=== PATIENT | female | born 1995 | race Caucasian/White ===

== ENCOUNTER 2018-10-25 08:01 | Emergency (ER) | payer SELFPAY ==
[2018-10-25 08:14] VITALS: BMI 28.3
[2018-10-25 08:15] VITALS: BP 130/83; PULSE 109; RESP 18; TEMP 99.1; O2SAT 99
[2018-10-25] MEDS ORDERED: Sodium Chloride 0.9% 1,000 ML IV ONE (08:31)
[2018-10-25] MEDS ORDERED: Sodium Chloride 0.9% 1,000 ML ONE (08:39)
[2018-10-25 09:08] LABS: BASO % 0.4 % (0.0-2.0); EOS % 0.3 % (0.0-4.0); HEMOGLOBIN 15.5 g/dL (11.0-16.0); LYMPH # 1.9 K/uL (1.0-4.3); LYMPH % 19.6 % (20.0-40.0); MEAN CELL VOLUME 84.1 fL (81.0-99.0); MEAN CORPUSCULAR HGB CONC 34.5 g/dL (33.0-37.0); MEAN PLATELET VOLUME 8.6 fL (7.2-11.7); MONO # 0.9 K/uL (0.0-0.8); MONO % 9.8 % (0.0-10.0); NEUT # 6.6 K/uL (1.8-7.0); NEUT % 69.9 % (50.0-75.0); RBC 5.34 Mil/uL (3.80-5.20); RED CELL DISTRIBUTION WIDTH 13.4 % (11.5-14.5); WHITE BLOOD COUNT 9.5 K/uL (4.8-10.8)
[2018-10-25 09:23] LABS: HCG,QUALITATIVE URINE NEGATIVE (NEGATIVE)
[2018-10-25 09:29] LABS: SQUAMOUS EPITHIAL 16 /hpf (0-5); URINE BACTERIA RARE (<OCC); URINE BILIRUBIN NEGATIVE (NEGATIVE); URINE BLOOD NEGATIVE (NEGATIVE); URINE CLARITY Hazy (Clear); URINE COLOR Yellow (YELLOW); URINE GLUCOSE (UA) NORMAL (Normal); URINE LEUKOCYTE ESTERASE TRACE Leu/uL (Negative); URINE PROTEIN NEGATIVE (NEGATIVE); URINE UROBILINOGEN NORMAL mg/dL (0.2-1.0)
[2018-10-25 09:31] LABS: ALB/GLOB RATIO 1.4 (1.0-2.1); ALBUMIN 4.8 g/dL (3.5-5.0); ALT/SGPT 30 U/L (9-52); AST/SGOT 29 U/L (14-36); BLOOD UREA NITROGEN 13 mg/dL (7-17); CALCIUM 9.9 mg/dl (8.6-10.4); GFR NON-AFRICAN AMERICAN > 60; LIPASE 34 U/L (23-300)
--- NOTE | 2018-10-25 10:24 | C.PDOC ---
History Of Present Illness 22 y/o female presents to the ER complaining of nausea, vomiting, diarrhea which has been present for the past 3 days. Patient states that her last vomiting episode was last night. Patient reports that she had diarrhea in the morning today. She notes that she has body aches. Denies having fever,chills, CP,SOB, and abdominal pain. Time Seen by Provider: 10/25/18 08:38 Chief Complaint (Nursing): GI Problem History Per: Patient History/Exam Limitations: no limitations Onset/Duration Of Symptoms: Days Current Symptoms Are (Timing): Still Present Severity: Moderate Past Medical History Reviewed: Historical Data, Nursing Documentation, Vital Signs Vital Signs: Last Vital Signs Temp 99.1 F 10/25/18 08:14 Pulse 109 H 10/25/18 08:14 Resp 18 10/25/18 08:14 BP 130/83 10/25/18 08:14 Pulse Ox 99 10/25/18 08:14 - Medical History PMH: No Chronic Diseases Other Surgeries: Hx of surgeries Family History: States: No Known Family Hx - Social History Hx Alcohol Use: Yes Hx Substance Use: No - Immunization History Hx Tetanus Toxoid Vaccination: No Hx Influenza Vaccination: No Hx Pneumococcal Vaccination: No Review Of Systems Constitutional: Negative for: Fever, Chills Gastrointestinal: Positive for: Nausea, Vomiting, Abdominal Pain Genitourinary: Negative for: Dysuria, Hematuria Physical Exam - Physical Exam Appears: Non-toxic, No Acute Distress Skin: Normal Color, Warm, Dry Head: Atraumatic, Normacephalic Eye(s): bilateral: Normal Inspection Nose: Normal Oral Mucosa: Moist Neck: Supple Cardiovascular: Rhythm Regular Respiratory: No Rales, No Rhonchi, No Wheezing Gastrointestinal/Abdominal: Bowel Sounds (normal bowel sounds), Soft, No Tenderness, No Guarding, No Rebound Neurological/Psych: Oriented x3, Normal Speech, Normal Cognition ED Course And Treatment - Laboratory Results Result Diagrams: 10/25/18 08:52 10/25/18 08:52 Lab Results: Total Bilirubin 0.5 mg/dL (0.2-1.3) 10/25/18 08:52 AST 29 U/L (14-36) 10/25/18 08:52 ALT 30 U/L (9-52) 10/25/18 08:52 Alkaline Phosphatase 77 U/L (38-126) 10/25/18 08:52 Total Protein 8.4 g/dL (6.3-8.3) H 10/25/18 08:52 Albumin 4.8 g/dL (3.5-5.0) 10/25/18 08:52 Globulin 3.5 gm/dL (2.2-3.9) 10/25/18 08:52 Albumin/Globulin Ratio 1.4 (1.0-2.1) 10/25/18 08:52 Lipase 34 U/L (23-300) 10/25/18 08:52 Urine Color Yellow (YELLOW) 10/25/18 08:52 Urine Clarity Hazy (Clear) 10/25/18 08:52 Urine pH 5.0 (5.0-8.0) 10/25/18 08:52 Ur Specific [place] 1.025 (1.003-1.030) 10/25/18 08:52 Urine Protein Negative mg/dL (NEGATIVE) 10/25/18 08:52 Urine Glucose (UA) Normal mg/dL (Normal) 10/25/18 08:52 Urine Ketones Negative mg/dL (NEGATIVE) 10/25/18 08:52 Urine Blood Negative (NEGATIVE) 10/25/18 08:52 Urine Nitrate Negative (NEGATIVE) 10/25/18 08:52 Urine Bilirubin Negative (NEGATIVE) 10/25/18 08:52 Urine Urobilinogen Normal mg/dL (0.2-1.0) 10/25/18 08:52 Ur Leukocyte Esterase Trace Damari/uL (Negative) 10/25/18 08:52 Urine WBC (Auto) 9 /hpf (0-5) H 10/25/18 08:52 Urine RBC (Auto) 2 /hpf (0-3) 10/25/18 08:52 Ur Squamous Epith Cells 16 /hpf (0-5) H 10/25/18 08:52 Urine Bacteria Rare (<OCC) 10/25/18 08:52 Urine HCG, Qual Negative (NEGATIVE) 10/25/18 08:52 Urine HCG, Qual Negative (NEGATIVE) 10/25/18 08:52 O2 Sat by Pulse Oximetry: 99 (RA) Pulse Ox Interpretation: Normal Medical Decision Making Medical Decision Making: pt feeling much better after zofran and toradol. labs nl, d/c home with zofran, f/u clinic. Disposition Counseled Patient/Family Regarding: Studies Performed, Diagnosis, Need For Followup, Rx Given - Disposition Referrals: [facility] [place] [Outside] Disposition: HOME/ ROUTINE Disposition Time: 10:22 Condition: IMPROVED Additional Instructions: Drink increased fluids and bland foods for a few days . Take ondasetron for nausea if needed. Follow up in medical clinic Prescriptions: Ondansetron ODT [Zofran ODT] 4 mg PO TID #12 odt Instructions: Viral Gastroenteritis, Adult (DC) Forms: [employer] (Greek), General Discharge Instructions - Clinical Impression Clinical Impression: Gastroenteritis - PA / ADDICTION PROFESSIONAL / Resident Statement MD/DO has reviewed & agrees with the documentation as recorded. - Scribe Statement The provider has reviewed the documentation as recorded by the Scribe Kamryn Fuentes Provider Attestation All medical record entries made by the Scribe were at my direction and personally dictated by me. I have reviewed the chart and agree that the record accurately reflects my personal performance of the history, physical exam, medical decision making, and the department course for this patient. I have also personally directed, reviewed, and agree with the discharge instructions and disposition.
== END 2018-10-25 11:00 | disposition home or self-care (01) ==
LOC: C.ER 08:01
DX: K52.9 Noninfective gastroenteritis and colitis, unspecified (principal)
CPT/HCPCS: 80053; 81001; 83690; 84703; 85025; 96361; 96374; 96375; 99285; J1885; J2405; J7030